=== PATIENT | female | born 1985 ===

== ENCOUNTER 2017-06-19 17:56 | Emergency (ER) | payer OTHER ==
[2017-06-19 18:47] VITALS: BMI 20.8
[2017-06-19 18:51] VITALS: O2SAT 98
[2017-06-19 19:11] VITALS: RESP 18
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
[2017-06-19 20:55] VITALS: BP 118/72; PULSE 98; TEMP 98.1
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
--- NOTE | 2017-06-20 08:34 | RAD ---
PROCEDURE: Cervical Spine Radiographs. HISTORY: Pain. COMPARISON: None. FINDINGS: BONES: Alignment maintained. No fracture. Dens Intact. DISC SPACES: Normal. SOFT TISSUES: Normal. No prevertebral soft tissue swelling. OTHER FINDINGS: None. IMPRESSION: Normal cervical spine radiographs
== END 2017-06-19 20:50 | disposition home or self-care (01) ==
LOC: ED 17:56
DX: S39.012A Strain of muscle, fascia and tendon of lower back, initial encounter (principal); V49.9XXA Car occupant (driver) (passenger) injured in unspecified traffic accident, initial encounter; M54.2 Cervicalgia